=== PATIENT | female | born 1955 | race Caucasian/White ===

== ENCOUNTER 2016-09-20 06:22 | Day surgery (SDC) | payer OTHER ==
[~2016-09-20] VITALS: Ht 162.6 cm; Wt 70.9 kg
[~2016-09-20 06:22] MED LIST: COMBIH PO; FERR324T4 PO; VICOT PO; [UNRECOGNIZED DRUG - CODE] PO
[2016-09-20] MEDS ORDERED: SODIUM CHLORIDE 0.9% 1,000 ML IV ONE ×2 (06:30→07:45)
[2016-09-20] MEDS ORDERED: MIDAZOLAM HCL 2 MG/2 ML VIAL ONE (07:49)
[2016-09-20] MEDS ORDERED: FentaNYL CITRATE-PF 100 MCG/2 ML VIAL ONE (07:49)
[2016-09-20] MEDS ORDERED: MONT10TA21 PO (08:49)
[2016-09-20] MEDS ORDERED: MethylPREDNISolone SOD SUCC 125 MG/2 ML VIAL IVP ONE (09:00)
[2016-09-20] MEDS ORDERED: MethylPREDNISolone SOD SUCC 125 MG/2 ML VIAL ONE (09:27)
[2016-09-20] MEDS ORDERED: OXYGEN THERAPY IH SCH (20:00)
== END 2016-09-20 10:55 | disposition home or self-care (01) ==
LOC: SURGERY 06:22
PROVIDERS: ATTEND Internal Medicine Critical Care Medicine
DX: J38.4 Edema of larynx (principal); B37.0 Candidal stomatitis; J45.909 Unspecified asthma, uncomplicated; M54.9 Dorsalgia, unspecified; N92.0 Excessive and frequent menstruation with regular cycle; Z88.0 Allergy status to penicillin; Z98.51 Tubal ligation status; Z86.59 Personal history of other mental and behavioral disorders; Z98.890 Other specified postprocedural states
CPT/HCPCS: 31623; 31624; 71010; 87015; 87070; 87101; 87205; 87220; 93005; J2250; J2930; J3010; J7030; 87149; 87186; 88108; 88312

== ENCOUNTER 2019-09-03 06:01 | Day surgery (SDC) | payer MEDICARE, OTHER ==
[~2019-09-03] VITALS: Ht 162.6 cm; Wt 73.2 kg
[~2019-09-03 06:01] MED LIST changes: +MONT10TA21 PO; -VICOT PO
[2019-09-03] MEDS ORDERED: SODIUM CHLORIDE 0.9% 1,000 ML ONE (06:05)
[2019-09-03] MEDS ORDERED: SODIUM CHLORIDE 0.9% 1,000 ML IV ONE (06:30)
[2019-09-03] MEDS ORDERED: BUDE10.2 IH (06:32)
[2019-09-03] MEDS ORDERED: ALBU8HFA IH (06:32)
[2019-09-03] MEDS ORDERED: FentaNYL CITRATE-PF 100 MCG/2 ML VIAL ONE (07:31)
[2019-09-03] MEDS ORDERED: MIDAZOLAM HCL 2 MG/2 ML VIAL ONE (07:31)
[2019-09-03] MEDS ORDERED: MethylPREDNISolone SOD SUCC 125 MG/2 ML VIAL IVP ONE (09:00)
[2019-09-03] MEDS ORDERED: MethylPREDNISolone SOD SUCC 125 MG/2 ML VIAL ONE (09:09)
[2019-09-03] MEDS ORDERED: LIDOCAINE 2% 30 ML JELLY ONE (17:15)
[2019-09-03] MEDS ORDERED: BENZOCAINE 20% 50 MCG/SPRAY 57 GM ONE (17:15)
[2019-09-03] MEDS ORDERED: ALBUTEROL SULFATE 2.5 MG/0.5 ML NEB SOLUTION NEB ONE (17:15)
[2019-09-03] MEDS ORDERED: LIDOCAINE 4% 50 ML SOLUTION ONE (17:15)
[2019-09-03] MEDS ORDERED: OXYGEN THERAPY IH SCH (20:00)
== END 2019-09-03 10:10 | disposition home or self-care (01) ==
LOC: SURGERY 06:01
PROVIDERS: ATTEND Internal Medicine Critical Care Medicine
DX: R05 Cough (principal); J47.9 Bronchiectasis, uncomplicated; J34.89 Other specified disorders of nose and nasal sinuses; J98.8 Other specified respiratory disorders; B37.0 Candidal stomatitis; J45.909 Unspecified asthma, uncomplicated; Z79.899 Other long term (current) drug therapy; R19.09 Other intra-abdominal and pelvic swelling, mass and lump
CPT/HCPCS: 31623; 31624; 71045; 87015; 87070; 87101; 87205; 87206; 87220; 88108; 88184; 88185; 88312; 93005; J2250; J2930; J3010; J7030

== ENCOUNTER 2023-10-14 06:38 | Day surgery (SDC) | payer MEDICARE, OTHER ==
[~2023-10-14] VITALS: Ht 160 cm; Wt 70.5 kg
[~2023-10-14 06:38] MED LIST changes: +ALBU8HFA IH; +BUDE10.2 IH; -COMBIH PO; -FERR324T4 PO; +MONT-35 PO; -MONT10TA21 PO; -[UNRECOGNIZED DRUG - CODE] PO
[2023-10-14] MEDS ORDERED: LIDOCAINE 2% 11 ML JELLY TP ONE (06:39)
[2023-10-14] MEDS ORDERED: ALBUTEROL SULFATE 2.5 MG/0.5 ML NEB SOLUTION NEB ONE (06:39)
[2023-10-14] MEDS ORDERED: BENZOCAINE 20% 50 MCG/SPRAY 57 GM TP ONE (06:39)
[2023-10-14] MEDS ORDERED: LIDOCAINE 4% 50 ML SOLUTION TP ONE (06:39)
[2023-10-14] MEDS ORDERED: LEVALBUTEROL 1.25 MG/0.5 ML NEB SOLUTION NEB ONE (06:39)
[2023-10-14] MEDS ORDERED: DOXY25SU3 PO (07:35)
[2023-10-14] MEDS: SODIUM CHLORIDE 0.9% 1,000 ML IV ONE (07:56)
[2023-10-14] MEDS ORDERED: MIDAZOLAM HCL 2 MG/2 ML VIAL ONE (08:35)
[2023-10-14] MEDS ORDERED: FentaNYL CITRATE PF 100 MCG/2 ML VIAL ONE (08:35)
[2023-10-14 09:10] VITALS: PULSE 67; RESP 20; O2SAT 100
[2023-10-14] MEDS ORDERED: MethylPREDNISolone SOD SUCC 125 MG/2 ML VIAL ONE (09:22)
[2023-10-14] MEDS: MethylPREDNISolone SOD SUCC 125 MG/2 ML VIAL IVP ONE (09:36)
== END 2023-10-14 11:25 | disposition home or self-care (01) ==
LOC: SURGERY 06:38
PROVIDERS: ATTEND Internal Medicine Critical Care Medicine
DX: J38.4 Edema of larynx (principal); B37.0 Candidal stomatitis; Z90.710 Acquired absence of both cervix and uterus; Z87.01 Personal history of pneumonia (recurrent); Z98.890 Other specified postprocedural states; Z79.899 Other long term (current) drug therapy
CPT/HCPCS: 31623; 87206; 87101; 87220; 87070; 31624; 94640; 71045; 87015; J3010; J2250; J2930; Q9967; 88108; 88305; J7613; Z7610